=== PATIENT | male | born 1990 | race Caucasian/White ===

== ENCOUNTER 2016-12-22 20:51 | Emergency (ER) | payer OTHER ==
[~2016-12-22] VITALS: Ht 185.4 cm; Wt 76.8 kg
[~2016-12-22 20:51] MED LIST: DAILY VITAMIN1 EAC8 PO; FISH OIL300 MG PO; GINKGO BILOBA40 M1 PO; GLUCOSAMINE1000 MG PO; MAGIC MOUTHWASH1 ML MM; MOTRIN600 MG PO; ZOLOFT50 MG PO
[2016-12-22 21:28] LABS: HEMATOCRIT 45.3 % (38.0-50.0); MCH 29.5 PG (29.0-34.0); MCHC 33.3 G/DL (30.0-36.0); MCV 88.6 FL (86-99); MEAN PLAT.VOLUME 9.3 uM^3 (9.0-12.4); PLATELET COUNT 280 K/uL (156-360); RBC DIS.WIDTH-SD 38.9 % (39-53); RED BLOOD COUNT 5.11 M/uL (4.00-5.50); WHITE BLOOD COUNT 6.8 K/uL (4.1-10.2)
[2016-12-22 21:37] LABS: ADD MIUA? NO; BILIRUBIN NEGATIVE; BLOOD NEGATIVE; COLOR YELLOW ((YELLOW)); GLUCOSE (STRIP) NEGATIVE; KETONES NEGATIVE; LEUKOCYTES NEGATIVE; NITRITE NEGATIVE; PROTEIN (STRIP) NEGATIVE; SPECIFIC GRAVITY 1.017 (1.000-1.030); UCUL ADDED? NO; UROBILINOGEN 0.2 MG/DL (0.2-1.0)
[2016-12-22 21:38] LABS: CHLORIDE 101 mEq/L (99-109); POTASSIUM 4.4 mEq/L (3.7-5.4); SODIUM 140 mEq/L (136-147)
[2016-12-22 21:40] LABS: GLUCOSE 91 mg/dL (70-99)
[2016-12-22 21:41] LABS: ANION GAP 11 MEQ/L (2-14)
[2016-12-22 21:43] LABS: SERUM ETHYL ALCOHOL < 10 mg/dL
[2016-12-22 21:44] LABS: GFR ESTIMATE (CALCULATED) > 59 mL/min/
[2016-12-22 21:46] LABS: UREA NITROGEN (BUN) 21 mg/dL (9-23)
[2016-12-22 21:47] LABS: SALICYLATE < 5.0 MG/DL (15-30)
[2016-12-22 21:47] LABS: AMPHETAMINE NEGATIVE (500 ng/mL); BARBITURATES NEGATIVE (200 ng/mL); BENZODIAZEPINES NEGATIVE (150 ng/mL); COCAINE NEGATIVE (150 ng/mL); INTERNAL CONTROLS VALID? YES; METHADONE NEGATIVE (200 ng/mL); METHAMPHETAMINE NEGATIVE (500 ng/mL); OPIATES (MORPHINE) NEGATIVE (100 ng/mL); OXYCODONE NEGATIVE (100 ng/mL); PHENCYCLIDINE NEGATIVE (25 ng/mL); PROPOXYPHENE NEGATIVE (300 ng/mL); THC CANNABINOIDS NEGATIVE (50 ng/mL); TRICYCLIC ANTIDEPRESSANTS NEGATIVE (300 ng/mL)
[2016-12-22 22:38] VITALS: BP 118/80
== END 2016-12-22 22:39 | disposition home or self-care (01) ==
LOC: EME 20:51
DX: T48.1X1A Poisoning by skeletal muscle relaxants [neuromuscular blocking agents], accidental (unintentional), initial encounter (principal); R42 Dizziness and giddiness; F32.9 Major depressive disorder, single episode, unspecified; G89.29 Other chronic pain; M54.9 Dorsalgia, unspecified
CPT/HCPCS: 80048; 81003; 85027; 93005; 99281; 99284; G0480